=== PATIENT | male | born 1965 | race Caucasian/White ===

== ENCOUNTER 2023-01-05 09:56 | Outpatient (AMB) | payer OTHER, SELFPAY ==
--- NOTE | 2023-01-05 09:57 | A.OFFVIS_ITS ---
Intake Vital Signs 01/05/23 10:02 Height 5 ft 10 in Weight 216 lb 0.848 oz BMI 31.0 BP 149/104 H Blood Pressure Location Lt brachial Position Sitting Pulse 95 Intake Visit Reasons: unspecified disease of esophagus Intake Note: Len presents in the office as a new patient for unspecified disease of the esophagus. CC: BP is high - he states he is not feeling himself. He gets acid reflux. Burning in his chest and sometimes in the stomach. Water will give him a bloating upset stomach. He gets both constipation and diarrhea. He denies any blood when he has a BM. 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 Pt subjectively reports acid reflux with regurgitation. Has been occuring for almost 5 years now. Manages with OTC tums once a day 3-4 times a week. The regurgitation he notes is only after he gets a bad coughing bout. In terms of his cough and shortness of breath undergoing evaluation through Pulm at [facility]. Had somewhat abnormal PFT but needs further follow up testing up for it. Pt also noted to have high eosinophils on peripheral smear based on records available. Has multiple seasonal allergies. Does not report difficulty or painful swallowing. ii) Abnormal LFTs. Has heavy etOH use hx. Was drinking 5-6 drinks in a day. Has decreased to may be 3-4 drinks per day. Mainly has wine or beer. Sometimes whiskey. Both parents had alcohol use disorder and while pt was still a teenager. No other hx of liver disease in family. No IVDU reported. No new med changes or travel in 6 months. iii) CRC screening: Last colo 9 years ago - through Dr Jung's office. Was asked to recall in 5 years but wasnt approved by [place] at that time. [facility] Surgical History Hx of colonoscopy Social History Household Members: Spouse Alcohol intake: current Alcohol intake frequency: 3 or more drinks per day Patient Tobacco Use Status: Never used Tobacco Substance Use Type: Marijuana Review of Systems Const All systems reviewed & are unremarkable except as noted in HPI and below Physical Exam Vital Signs: Last Vital Signs Pulse 95 01/05/23 10:02 BP 149/104 H 01/05/23 10:02 BMI result Body Mass Index 31.0 Gen appear: NAD HEENT: nonicteric Chest: No overt resp distress Abd: soft, nontender, nondistended Ext: no peripheral edema Neuro: A/Ox3, noted to move all extremities spontaneously Psych: interacting appropriately Assessment & Plan Assessment & Plan (1) GERD (gastroesophageal reflux disease): Code(s): K21.9 - Gastro-esophageal reflux disease without esophagitis (2) Peripheral eosinophilia: Code(s): D72.19 - Other eosinophilia (3) Elevated transaminase level: Code(s): R74.01 - Elevation of levels of liver transaminase levels (4) Colon cancer screening: Code(s): Z12.11 - Encounter for screening for malignant neoplasm of colon Plan 1) GERD: Will set him for upper EGD to r/o esophagitis, EoE. This is to be done OFF ppi therapy. If EGD with bx normal, low threshold to proceed with Parsons study next. 2) Elevated LFTs: Likely from etOH use. Check hep serologies. US Abd ordered. Repeat LFTs ordered. Depending on extent and chronicity of transaminases elevation, may need further work up including r/o A1At. 3) CRC screening: appears to eb overdue based on his description. Colonoscopy will be set up at the same time as EGD. Split PEG prep instructions reviewed with the pt. Follow up in 4 weeks Orders: Orders Complete Blood Count no Diff Today R74.01 - Elevation of levels of liver transaminase levels Prothrombin Time INR Today R74.01 - Elevation of levels of liver transaminase levels Basic Metabolic Panel Today R74.01 - Elevation of levels of liver transaminase levels Hepatitis A IgG Today R74.01 - Elevation of levels of liver transaminase levels Hepatitis B Surface Antibody Today R74.01 - Elevation of levels of liver transaminase levels Hepatitis C Antibody Today R74.01 - Elevation of levels of liver transaminase levels Liver Panel Today R74.01 - Elevation of levels of liver transaminase levels US abdomen complete Today R74.01 - Elevation of levels of liver transaminase levels Hepatitis B Core Antibody Today R74.01 - Elevation of levels of liver transaminase levels Hepatitis B Surface Antigen Today R74.01 - Elevation of levels of liver transaminase levels Medications: New peg 3350-electrolytes 236-22.74-6.74 -5.86 gram (Golytely) as per split prep instructions, until fecal effluent is clear 240 mL PO Q10M 4,000 mL 0RF colonoscopy Coding Level of Care Code New Pt Level 5 ([id number]) Diagnoses GERD (gastroesophageal reflux disease) K21.9 Peripheral eosinophilia D72.19 Elevated transaminase level R74.01 Colon cancer screening Z12.11
[2023-01-05 10:02] VITALS: BP 149/104; PULSE 95; BMI 31.0
== END 2023-01-05 10:38 | disposition home or self-care (01) ==
PROVIDERS: Visit Provider Internal Medicine
DX: K21.9 Gastro-esophageal reflux disease without esophagitis (principal); D72.19 Other eosinophilia; R74.01 Elevation of levels of liver transaminase levels; Z12.11 Encounter for screening for malignant neoplasm of colon
CPT/HCPCS: 99204

== ENCOUNTER → 2023-01-05 09:56 | Outpatient (BNVA) | payer OTHER, SELFPAY | PROVIDERS: Visit Provider Internal Medicine ==

== ENCOUNTER 2023-01-30 11:22 | Outpatient (REF) | payer OTHER, SELFPAY ==
--- NOTE | ~2023-01-30 | US_ITS ---
EXAMINATION: US ABDOMEN COMPLETE CLINICAL INFORMATION: Elevation of liver transaminase levels. COMPARISON: None available. TECHNIQUE: Real-time imaging of the abdominal viscera. FINDINGS: PANCREAS: Normal head and neck, the remainder is obscured by bowel gas. ABDOMINAL AORTA: The proximal, mid, and distal segments are normal in caliber. INFERIOR VENA CAVA: Visualized portions are normal. LIVER: The liver is enlarged measuring 18.0 cm in sagittal oblique dimension. The liver contour is normal. There is diffuse increased liver parenchymal echogenicity, consistent with hepatic steatosis. No focal hepatic lesion. There is no intrahepatic biliary duct dilatation seen. GALLBLADDER: Normal. The gallbladder is physiologically distended without evidence of stones, sludge, polyps, wall thickening or pericholecystic fluid. COMMON BILE DUCT: Normal in caliber measuring 0.6 cm in diameter. RIGHT KIDNEY: Normal. No hydronephrosis. No renal calculi or focal parenchymal lesions. The kidney measures 12.0 cm in maximum dimension. LEFT KIDNEY: Normal. No hydronephrosis. No renal calculi or focal parenchymal lesions. The kidney measures 13.1 cm in maximum dimension. SPLEEN: Normal. The spleen measures 11.3 cm in maximum dimension. FREE FLUID: None. US/US abdomen complete IMPRESSION: Hepatomegaly with hepatic steatosis.
[2023-01-30 12:07] LABS: Hematocrit 47.3 % (42.0-52.0); Hemoglobin 16.6 g/dl (14.0-18.0); Mean Corpuscular HGB Conc 35.1 g/dl (31.0-36.0); Mean Corpuscular Volume 96.9 fL (80.0-98.0); Mean Platelet Volume 9.8 fL (9.4-12.4); Platelet Count 248 X10*3/uL (160-400); Red Blood Count 4.88 X10*6/uL (4.60-5.80); Red Cell Distribution Width 12.7 % (11.0-16.0); White Blood Count 6.9 X10*3/uL (4.8-10.8)
[2023-01-30 12:24] LABS: INTERNATIONAL NORM RATIO 0.9 (0.9-1.1); Prothrombin Time 11.2 SEC (11.1-13.3)
[2023-01-30 12:37] LABS: Alanine Aminotransferase 164 U/L (0-40); Albumin Level 4.2 g/dL (3.5-5.0); Alkaline Phosphatase 68 U/L (39-117); Anion Gap 12 (12-20); Aspartate Amino Transferase 158 U/L (5-37); Bilirubin Direct 0.4 mg/dL (0.0-0.5); Blood Urea Nitrogen 11 mg/dL (9-16); Calcium 9.3 mg/dL (8.4-10.2); Carbon Dioxide 23 mmol/L (22-29); Chloride 110 mmol/L (96-108); Estimated Glomerular Filt Rate > 60; Glucose Random 110 mg/dL (60-115); Potassium 4.1 mmol/L (3.3-5.1); Sodium 141 mmol/L (135-145); Total Protein 7.5 g/dL (6.5-8.0)
[2023-01-31 03:48] LABS: Hepatitis A Antibody IgG REACTIVE (Nonreactive); ~Hepatitis A Antibody IgG 7.19 S/CO (0.00-0.99)
[2023-01-31 04:21] LABS: HBS Num1 > 1000.00 mIU/mL (0-7.99); HBc Num1 0.05 S/CO (0.00-0.79); HBsAGNum1 0.34 S/CO (0.00-0.99); Hepatitis B Core Antibody Nonreactive (Nonreactive); Hepatitis B Surface Antigen Negative (Negative); ~HepC Num1 0.08 S/CO (0.00-0.79); ~Hepatitis B Surface Antibody REACTIVE (Nonreactive); ~Hepatitis C Antibody Nonreactive (Nonreactive)
== END 2023-01-30 11:23 | disposition home or self-care (01) ==
LOC: HO.US 11:22
PROVIDERS: PCP Family Medicine; Visit Provider Internal Medicine
DX: R74.01 Elevation of levels of liver transaminase levels (principal)
CPT/HCPCS: 36415; 76700; 80048; 80076; 85027; 85610; 86704; 86706; 86708; 86803; 87340